=== PATIENT | female | born 1965 | race Caucasian/White ===

== ENCOUNTER 2019-09-22 10:00 | Day surgery (SDC) | payer BC ==
[2019-09-21 12:23] VITALS: BMI 25.7
[2019-09-22] MEDS ORDERED: ceFAZolin SODIUM 1 GM VIAL IVPB ONE (12:47)
[2019-09-22] MEDS ORDERED: LIDOCAINE HCL 1%, 10 MG/ML (20ML VIAL) NR ONE (12:50)
[2019-09-22] MEDS ORDERED: oxyCODONE HCL 5 MG TABLET PO PRN (13:53)
[2019-09-22] MEDS ORDERED: ONDANSETRON 4 MG/2 ML VIAL IVPUSH PRN (13:53)
[2019-09-22] MEDS ORDERED: ACETAMINOPHEN 325 MG TABLET (FP) PO PRN (13:53)
[2019-09-22] MEDS ORDERED: LACTATED RINGERS SOLUTION 1,000 ML IV SCH (14:00)
[2019-09-22 15:29] VITALS: TEMP 98
[2019-09-22 16:43] VITALS: BP 120/60; PULSE 82
--- NOTE | 2019-09-24 02:05 | OP ---
DATE OF OPERATION: 09/22/2019 PREOPERATIVE DIAGNOSIS: Left breast ductal carcinoma in situ. POSTOPERATIVE DIAGNOSIS: Left breast ductal carcinoma in situ. PROCEDURE: Left breast wide localized lumpectomy. SURGEON: Jeaneth Albert MD ANESTHESIA: Local with IV sedation. ESTIMATED BLOOD LOSS: Minimal. COMPLICATIONS: None. DISPOSITION: Stable to PACU. INDICATIONS: The patient had a screening mammogram that noted a new area of clustering microcalcifications in the upper outer left breast. She had a needle biopsy that showed a DCIS. My recommendation was a lumpectomy, followed by radiation. The procedure was discussed with all the questions answered. PROCEDURE IN DETAIL: The patient was brought to [facility] in [place] and taken to breast imaging, where a wire was used to localize the clip in the upper outer left breast. There were some residual calcifications and the wire seemed anterior to the site of the calcifications. She was then brought up to the operating room and, after IV sedation and IV antibiotics, the left breast was prepped and draped in the usual sterile fashion. The area in the upper outer left breast and retroareolar left breast was anesthetized with 1% lidocaine without epinephrine. A perioareolar incision was made in the upper outer left breast and the wire was used as a guide to get down to the area of interest; this was excised en bloc. Anteriorly, I could see some pledgets coming out of the breast tissue; therefore, these pledgets were taken out separately and placed on a Telfa. Then, I took an additional anterior tissue over that to cover the area where the pledgets were. This en bloc lumpectomy was tagged with a long stitch lateral, short stitch superior. It was sent for specimen radiograph. The specimen radiograph showed the wire within the specimen, as well as the residual calcifications, but no clip. I then did a specimen radiograph of the 6 pledgets and one of them did have the clip within it. The specimens were sent to pathology for permanent section. Hemostasis was assured with electrocautery. The parenchyma was approximated with interrupted with 2-0 Vicryl; skin approximated with interrupted 3-0 Vicryl and running 4-0 Prolene. A sterile dressing with Tegaderm and 4 x 4's applied, as well as a mammary binder. She tolerated the procedure well and was taken to recovery in good condition. JEANETHSahil [id number]
--- NOTE | 2019-09-26 10:12 | PATH ---
Surgical Pathology Report Patient Name: ELAINA GOSS [facility]. Rec. #: [id number] /Age/Gender: 1965 (Age: 54) / F Account: [id number] Location: [facility] Taken: 09/22/2019 Received: 09/22/2019 Reported: 09/26/2019 Physicians: Jeaneth Albert M.D. Specimen(s) Received A: LEFT BREAST LUMPECTOMY B: LEFT BREAST CLIP Clinical History DCIS Final Diagnosis A. BREAST, LEFT, LUMPECTOMY: FOCAL FLAT EPITHELIAL ATYPIA AND COLUMNAR CELL CHANGES ADJACENT CHANGES OF PRIOR BIOPSY IN A BACKGROUND OF FIBROCYSTIC CHANGES INCLUDING STROMAL FIBROSIS, MICROCYSTS, CYSTIC APOCRINE METAPLASIA, USUAL DUCTAL HYPERPLASIA, AND MICROCALCIFICATIONS. B. BREAST CLIP, LEFT, BIOPSY: RARE MINUTE CLUSTERS OF APOCRINE CELLS AND DEGENERATED CELLS ASSOCIATED WITH MICROCALCIFICATIONS. DEEPER LEVELS HAVE BEEN EXAMINED. Electronically Signed Janel Henry M.D. Gross Description A. Received fresh on an AccuGrid, labeled "left breast lumpectomy," is a 5.0 x 4.2 x 2.3 cm. cobb-yellow, irregular, portion of fibroadipose tissue with a needle localization wire present. There is a short suture marking the superior aspect and a long suture marking the lateral aspect, per the surgeon. There is no skin or nipple present. The specimen is inked as follows: superior and lateral blue; inferior green; medial yellow; anterior red; deep black. The specimen is serially sectioned from superior to inferior. Sectioning reveals abundant dense, white, focally firm fibrous tissue with focal calcifications. No definitive mass is identified. The specimen is entirely and sequentially submitted in 11 cassettes with the superior margin in cassette 1, the inferior margin in cassette 11 and calcifications in cassettes 6-9 (one bisected section each in cassettes 4/5, 6/7, 8/9). Total formalin fixation time: Approximately 6 hours B. Received fresh on an AccuGrid labeled "left breast clip," are 8 cobb-white, cylindrical calcifications ranging from 0.3-0.6 cm in length and averaging 0.2 cm in diameter. The specimens are entirely submitted in 2 cassettes (one cassette following decalcification). Total formalin fixation time: Approximately 6 hours DL/09/22/2019/09/22/2019
== END 2019-09-22 16:35 | disposition home or self-care (01) ==
LOC: JASU-SURG 10:00
PROVIDERS: ATTEND Surgery
PROC: 0HBU0ZZ Excision of Left Breast, Open Approach (ICD-10-PCS; principal; 2019-09-22 12:00)
DX: D05.12 Intraductal carcinoma in situ of left breast (principal)
CPT/HCPCS: 19281; 76098-TC-FY; 81025; 88305-TC; 88307-TC; 94760